=== PATIENT | male | born 1960 | race Caucasian/White ===

== ENCOUNTER → 2021-05-19 | Outpatient (CLI) | payer OTHER ==
[~2021-05-19] MED LIST: BUSP10TA PO; LAMO25TA5 PO; TRAZ-123 PO
--- NOTE | 2021-05-19 17:23 | KCIC ---
EXAM: PA and Lateral Views of the Chest DATE: 05/19/2021 1:04 PM INDICATION: Reason: SHORT OF AIR X 1 YEAR / Spl. Instructions: / History: COMPARISON: 01/04/2014 FINDINGS: The heart is not enlarged. Mediastinal and hilar contours are normal. Aorta is tortuous. No focal parenchymal airspace opacity. No pleural effusion or pneumothorax. Height loss of a likely L1, was previously seen on prior CT 01/04/2014 IMPRESSION: 1. No radiographic evidence for acute cardiopulmonary process. Electronically signed by: Armando Miranda MD (05/19/2021 5:21 PM) [email or web address]
== END ==
LOC: KCIC 13:01
PROVIDERS: ATTEND Family Medicine
DX: R06.02 Shortness of breath (principal)
CPT/HCPCS: 71046